=== PATIENT | female | born 1980 | race Caucasian/White ===

== ENCOUNTER 2016-10-28 09:54 | Emergency (ER) | payer MEDICAID ==
--- NOTE | 2016-10-28 11:28 | ER Document Report ---
ED ENT - General Chief Complaint: Sore Throat Stated Complaint: THROAT PAIN Time Seen by Provider: 10/28/16 10:07 TRAVEL OUTSIDE OF THE [place] IN LAST 30 DAYS: No - HPI Patient complains to provider of: Throat problem - hoarse voice with post nasal drip for 4 days, assocaited dry cough Quality of pain: Achy Location of pain: Throat Associated symptoms: Other - sore shoulders without trauma, fall. ROM intact Similar symptoms previously: No Recently seen / treated by doctor: No - Related Data Allergies/Adverse Reactions: No Known Allergies Allergy (Unverified 10/28/16 09:58) Past Medical History - General Information source: Patient - Social History Smoking Status: Current Every Day Smoker Chew tobacco use (# tins/day): No Smoking Education Provided: Yes - for 2 minutes Frequency of alcohol use: Rare Drug Abuse: None Family History: Reviewed & Not Pertinent Patient has suicidal ideation: No Patient has homicidal ideation: No Renal/ Medical History: Denies: Hx Peritoneal Dialysis Surgical Hx: Negative - Immunizations Hx Diphtheria, Pertussis, Tetanus Vaccination: Yes Review of Systems - Review of Systems Constitutional: No symptoms reported EENT: See HPI Cardiovascular: No symptoms reported Respiratory: No symptoms reported -: Yes All other systems reviewed and negative Physical Exam - Vital signs Vitals: Temp Pulse Resp BP Pulse Ox 98.4 F 67 16 130/84 H 95 10/28/16 09:59 10/28/16 09:59 10/28/16 09:59 10/28/16 09:59 10/28/16 09:59 - Notes Notes: PHYSICAL EXAM GENERAL: Alert, interacts well. HEAD: Normocephalic, atraumatic. EYES: Pupils equal, round, and reactive to light. Extraocular movements intact. ENT: Oral mucosa moist, tongue midline. Uvula midline. Airway patent. No evidence of tonsillar enlargement, peritonsillar abscess, retropharyngeal abscess. NECK: Full range of motion. Supple. Trachea midline. LUNGS: Clear to auscultation bilaterally, no wheezes, rales, or rhonchi. No respiratory distress. HEART: Regular rate and rhythm. No murmurs, gallops, or rubs. EXTREMITIES: Moves all 4 extremities spontaneously. No edema, radial and dorsalis pedis pulses 2/4 bilaterally. No cyanosis. NEUROLOGICAL: Alert and oriented x4. Normal speech. PSYCH: Normal affect, normal mood. SKIN: Warm, dry, normal turgor. No rashes or lesions noted. Course - Re-evaluation Re-evalutation: 10/28/16 11:39 Patient is a 36-year-old female who is hemodynamic stable, no acute distress and afebrile. Rapid strep was negative. Patient's presentation is consistent with acute allergic rhinitis. Patient educated on [id number] medications to help with her symptoms. Patient to follow-up with primary care as needed. - Vital Signs Vital signs: Temp Pulse Resp BP Pulse Ox 98.4 F 67 16 130/84 H 95 10/28/16 09:59 10/28/16 09:59 10/28/16 09:59 10/28/16 09:59 10/28/16 09:59 Discharge - Discharge Clinical Impression: Rhinitis Qualifiers: Rhinitis type: allergic Chronicity: acute Allergic rhinitis trigger: unspecified Allergic rhinitis seasonality: seasonal Qualified Code(s): J30.2 - Other seasonal allergic rhinitis Condition: Good Disposition: HOME, SELF-CARE Instructions: Hay Fever ([facility]), OTC Antihistamines ([facility]), Sore Throat ([facility]), Muscle Strain ([facility]), Exercise Program for the Shoulder ([facility]) Additional Instructions: Gxts-[id number] medications to purchase: Claritin/Zyrtec with decongestant, Tylenol or Motrin. Prescriptions: Methylprednisolone [Medrol Dosepack (4 mg/Tab) 21 Tab/Dosepak] 4 mg PO ASDIR PRN #21 tab.ds.pk PRN Reason: Forms: Elevated Blood Pressure, Smoking Cessation Education Referrals: ERICA LEVY MD [ACTIVE STAFF] - Follow up as needed
[2016-10-28 11:55] VITALS: BP 128/69
== END 2016-10-28 11:55 | disposition home or self-care (01) ==
LOC: ER 09:54
DX: J30.2 Other seasonal allergic rhinitis (principal); J02.9 Acute pharyngitis, unspecified; R07.0 Pain in throat; R49.0 Dysphonia; R09.82 Postnasal drip; F17.200 Nicotine dependence, unspecified, uncomplicated; R05 Cough
CPT/HCPCS: 87070; 87880; 99283

== ENCOUNTER 2018-05-06 19:08 | Emergency (ER) | payer MEDICAID ==
--- NOTE | 2018-05-06 20:41 | ER Document Report ---
ED Medical Screen (RME) - General Chief Complaint: Epigastric Pain Stated Complaint: EPIGASTRIC PAIN Time Seen by Provider: 05/06/18 20:39 Mode of Arrival: Ambulatory Information source: Patient Notes: This is a 37-year-old female with no significant prior medical history who presents to the emergency room with epigastric discomfort, right upper quadrant discomfort since the afternoon. Patient states it is better with burping and seems to be worse with food. Patient states that the symptoms started after a eating pizza rolls. Patient denies fever. She denies any vomiting. Past surgical history: , bilateral tubal ligation. Cigarettes: One pack per day TRAVEL OUTSIDE OF THE [place] IN LAST 30 DAYS: No - Related Data Allergies/Adverse Reactions: No Known Allergies Allergy (Verified 05/06/18 19:09) Past Medical History - General Information source: Patient - Social History Cigarette use (# per day): Yes - 1 pack cigarettes per day Chew tobacco use (# tins/day): No Frequency of alcohol use: Rare Drug Abuse: None Renal/ Medical History: Denies: Hx Peritoneal Dialysis Past Surgical History: Reports: Hx Section - x 3 - Immunizations Hx Diphtheria, Pertussis, Tetanus Vaccination: Yes Physical Exam - Vital signs Vitals: Temp Pulse Resp BP Pulse Ox 98.9 F 61 18 138/71 H 97 05/06/18 19:12 05/06/18 19:12 05/06/18 19:12 05/06/18 19:12 05/06/18 19:12 Course - Vital Signs Vital signs: Temp Pulse Resp BP Pulse Ox 98.9 F 61 18 138/71 H 97 05/06/18 19:12 05/06/18 19:12 05/06/18 19:12 05/06/18 19:12 05/06/18 19:12
[2018-05-06 20:46] LABS: APPEARANCE,URINE CLEAR; BILIRUBIN,URINE NEGATIVE (NEGATIVE); COLOR,URINE YELLOW; GLUCOSE, URINE NEGATIVE (NEGATIVE); KETONES,URINE NEGATIVE (NEGATIVE); LEUKOCYTE ESTERASE,URINE NEGATIVE (NEGATIVE); NITRITE,URINE NEGATIVE (NEGATIVE); PROTEIN,URINE NEGATIVE (NEGATIVE); URINE SPECIFIC GRAVITY 1.019; UROBILINOGEN,URINE NEGATIVE mg/dL (<2.0)
[2018-05-06 20:58] LABS: ABSOLUTE BASOPHILS # (AUTO) 0.1 10^3/uL (0.0-0.2); ABSOLUTE LYMPHOCYTES (AUTO) 1.8 10^3/uL (0.5-4.7); ABSOLUTE MONOCYTES (AUTO) 0.5 10^3/uL (0.1-1.4); ABSOLUTE NEUT (AUTO) 10.7 10^3/uL (1.7-8.2); BASOPHILS % (AUTO) 0.7 % (0-2); EOSINOPHILS % (AUTO) 0.2 % (0-6); HEMATOCRIT 36.8 % (36.0-47.0); HEMOGLOBIN 11.8 g/dL (12.0-15.5); LYMPHOCYTES % (AUTO) 13.8 % (13-45); MEAN CORPUSCULAR HEMOGLOBIN 24.6 pg (27.0-33.4); MEAN CORPUSCULAR VOLUME 77 fl (80-97); MONOCYTES % (AUTO) 3.8 % (3-13); PLATELET COUNT 343 10^3/uL (150-450); RED BLOOD COUNT 4.79 10^6/uL (3.72-5.28); RED CELL DISTRIBUTION WIDTH 19.6 % (11.5-14.0); SEGMENTED NEUTROPHILS % (AUTO) 81.5 % (42-78); TOTAL CELLS COUNTED % (AUTO) 100 %; WHITE BLOOD COUNT 13.2 10^3/uL (4.0-10.5)
[2018-05-06 21:10] LABS: ALANINE AMINOTRANSFERASE 31 U/L (9-52); ALBUMIN 4.6 g/dL (3.5-5.0); ALKALINE PHOSPHATASE 75 U/L (38-126); ANION GAP 9 (5-19); ASPARTATE AMINO TRANSFERASE 19 U/L (14-36); BILIRUBIN,DIRECT 0.2 mg/dL (0.0-0.4); BILIRUBIN,TOTAL 0.3 mg/dL (0.2-1.3); BLOOD UREA NITROGEN 7 mg/dL (7-20); CALCIUM 9.8 mg/dL (8.4-10.2); CARBON DIOXIDE 24 mmol/L (22-30); CHLORIDE 103 mmol/L (98-107); GLUCOSE 125 mg/dL (75-110); POTASSIUM 4.4 mmol/L (3.6-5.0); SODIUM 136.1 mmol/L (137-145); TOTAL PROTEIN 7.4 g/dL (6.3-8.2)
--- NOTE | 2018-05-06 23:23 | RADIOLOGY REPORT (SQ) ---
EXAM DESCRIPTION: US ABDOMEN LIMITED COMPLETED DATE/TME: 05/06/2018 20:39 CLINICAL HISTORY: 37 years, Female, upper abdominal pain r/o gb disease COMPARISON: None. TECHNIQUE: Limited right upper quadrant ultrasound LIMITATIONS: None. FINDINGS: Diffuse increased echogenicity of the liver consistent with fatty infiltrative change. No focal liver lesions. Mobile, shadowing stones in the gallbladder lumen. No gallbladder wall thickening or pericholecystic fluid. The CBD measures 4 mm. The visualized portions of the pancreas, abdominal aorta, inferior vena cava, right kidney unremarkable. No ascites IMPRESSION: Fatty infiltrative change to the liver. Cholelithiasis. No sonographic evidence for cholecystitis copyright 2010 [employer] [facility]- All Rights Reserved
[2018-05-06] MEDS ORDERED: KETOROLAC TROMETHAMINE INJ/PF 30 MG/1 ML SDV IV ONE (23:29)
[2018-05-06] MEDS ORDERED: NORMAL SALINE 1000 ML 1,000 ML IV ONE (23:29)
[2018-05-06] MEDS ORDERED: ONDANSETRON HCL INJ/PF 4 MG/2 ML SDV IV ONE (23:29)
--- NOTE | 2018-05-07 02:13 | ER Document Report ---
ED General - General Chief Complaint: Epigastric Pain Stated Complaint: EPIGASTRIC PAIN Time Seen by Provider: 05/06/18 20:39 Mode of Arrival: Ambulatory Notes: Patient is a 37-year-old female presents to the emergency department with generalized right upper quadrant and epigastric pain starting around 1500 hrs. yesterday. Patient states at that time she was nauseous but denies any vomiting, diarrhea, fever, dysuria, vaginal discharge. Patient states she has had pain in her epigastric region before. States typically it goes away on its own but states today it was constant which is why she presents to the emergency room. Past medical history: None Medications: None Allergies: None Surgical history: section with tubal ligation Last menstrual period January, patient states her menses are always irregular TRAVEL OUTSIDE OF THE [place] IN LAST 30 DAYS: No - Related Data Allergies/Adverse Reactions: No Known Allergies Allergy (Verified 05/06/18 19:09) Past Medical History - General Information source: Patient - We will - Social History Smoking Status: Current Every Day Smoker Cigarette use (# per day): Yes - 1 pack cigarettes per day Chew tobacco use (# tins/day): No Frequency of alcohol use: Rare Drug Abuse: None Family History: Reviewed & Not Pertinent Patient has suicidal ideation: No Patient has homicidal ideation: No Renal/ Medical History: Denies: Hx Peritoneal Dialysis Past Surgical History: Reports: Hx Section - x 3 - Immunizations Hx Diphtheria, Pertussis, Tetanus Vaccination: Yes Review of Systems - Review of Systems Constitutional: No symptoms reported. denies: Fever EENT: No symptoms reported - EKG still shows that she has been transferred I am going to leave the morning Cardiovascular: No symptoms reported Respiratory: No symptoms reported Gastrointestinal: See HPI Genitourinary: See HPI Female Genitourinary: See HPI Musculoskeletal: See HPI Skin: No symptoms reported Hematologic/Lymphatic: No symptoms reported Neurological/Psychological: No symptoms reported Physical Exam - Vital signs Vitals: Temp Pulse Resp BP Pulse Ox 98.9 F 61 18 138/71 H 97 05/06/18 19:12 05/06/18 19:12 05/06/18 19:12 05/06/18 19:12 05/06/18 19:12 - Notes Notes: GENERAL: Obese with alert, interacts well. No acute distress. HEAD: Normocephalic, atraumatic. EYES: Pupils equal, round, and reactive to light. Extraocular movements intact. ENT: Oral mucosa moist, tongue midline. NECK: Full range of motion. Supple. Trachea midline. LUNGS: Clear to auscultation bilaterally, no wheezes, rales, or rhonchi. No respiratory distress. HEART: Regular rate and rhythm. No murmur ABDOMEN: Obese, soft, non-tender. Non-distended. Bowel sounds present in all 4 quadrants. No McBurney's point tenderness, no Elkins sign noted on my examination. EXTREMITIES: Moves all 4 extremities spontaneously. No edema, normal radial and dorsalis pedis pulses bilaterally. No cyanosis. BACK: no cervical, thoracic, lumbar midline tenderness. No saddle anesthesia, normal distal neurovascular exam. NEUROLOGICAL: Alert and oriented x3. Normal speech. PSYCH: Normal affect, normal mood. SKIN: Warm, dry, normal turgor. No rashes or lesions noted. Course - Re-evaluation Re-evalutation: 05/07/18 02:10 Patient's labs show leukocytosis of 13.1, her sodium level was 136.1 treated with normal saline solution in the emergency department. Patient's urine shows no signs of infection, negative hCG. Patient was treated with Toradol and Zofran for her generalized epigastric right upper quadrant pain noted by the E provider. Patient's ultrasound shows cholelithiasis with no signs of cholecystitis. Upon my examination patient states she is pain-free and requesting discharge. Discussed return precautions and follow-up with primary care provider and surgery. Patient voices understanding. Patient stable for discharge. - Vital Signs Vital signs: Temp Pulse Resp BP Pulse Ox 98.9 F 61 18 138/71 H 97 05/06/18 19:12 05/06/18 19:12 05/06/18 19:12 05/06/18 19:12 05/06/18 19:12 - Laboratory Result Diagrams: 05/06/18 20:45 05/06/18 20:45 Laboratory results interpreted by me: 05/06/18 05/06/18 20:45 20:45 WBC 13.2 H Hgb 11.8 L MCV 77 L MCH 24.6 L RDW 19.6 H Seg Neutrophils % 81.5 H Absolute Neutrophils 10.7 H Sodium 136.1 L Glucose 125 H Discharge - Discharge Clinical Impression: Cholelithiasis Qualifiers: Cholelithiasis location: gallbladder Cholecystitis presence: without cholecystitis Biliary obstruction: without biliary obstruction Qualified Code(s): K80.20 - Calculus of gallbladder without cholecystitis without obstruction Condition: Stable Disposition: HOME, SELF-CARE Instructions: Gallbladder Disease ([facility]) Additional Instructions: As we discussed you have been seen and treated in the emergency department for something called cholelithiasis. This means there are stones in your gallbladder. You should follow-up with your primary care provider and inevitably surgery. A surgeon can electively potentially take out your gallbladder. Please return to the emergency room should you have any other concerning symptoms. Prescriptions: Ketorolac Tromethamine [Toradol 10 mg Tablet] 10 mg PO Q8HP PRN #24 tablet PRN Reason: Ondansetron [Zofran Odt 4 mg Tablet] 1 - 2 tab PO Q4H PRN #15 tab.rapdis PRN Reason: For Nausea/Vomiting Referrals: ANTOINE FOUNTAIN MD [[facility]] - Follow up as needed
[2018-05-07 02:59] VITALS: BP 109/56
== END 2018-05-07 03:00 | disposition home or self-care (01) ==
LOC: ER 19:08
DX: K80.20 Calculus of gallbladder without cholecystitis without obstruction (principal); R10.13 Epigastric pain; R10.11 Right upper quadrant pain; R11.0 Nausea; F17.210 Nicotine dependence, cigarettes, uncomplicated
CPT/HCPCS: 99284; 96374; 96375; 36415; 83690; 85025; 81025; 80053; 81001; 76705; J1885; J2405; J7030

== ENCOUNTER 2018-05-16 03:16 | Day surgery (SDC) | payer MEDICAID ==
[2018-05-16] MEDS ORDERED: MORPHINE SULFATE 10 MG/ML INJ IV ONE ×2 (03:48→05:35)
[2018-05-16] MEDS ORDERED: KETOROLAC TROMETHAMINE INJ/PF 30 MG/1 ML SDV IV ONE ×2 (03:48→05:35)
[2018-05-16] MEDS ORDERED: ONDANSETRON HCL INJ/PF 4 MG/2 ML SDV IV ONE (03:49)
[2018-05-16] MEDS ORDERED: NORMAL SALINE 1000 ML 1,000 ML IV ONE (03:49)
--- NOTE | 2018-05-16 04:03 | ER Document Report ---
Addendum entered and electronically signed by MARLENY PEREZ PA 05/16/18 07:24: Discharge - Discharge Clinical Impression: RUQ abdominal pain Vomiting Qualifiers: Vomiting type: unspecified Vomiting Intractability: non-intractable Nausea presence: with nausea Qualified Code(s): R11.2 - Nausea with vomiting, unspecified Cholelithiasis Qualifiers: Cholelithiasis location: gallbladder Cholecystitis presence: without cholecystitis Biliary obstruction: without biliary obstruction Qualified Code(s): K80.20 - Calculus of gallbladder without cholecystitis without obstruction Condition: Stable Disposition: ADMITTED OBSERVATION Admitting Provider: Surgicalist Unit Admitted: Surgical Floor Referrals: GLADYS STRICKLAND MD [Primary Care Provider] - Follow up as needed Original Note: ED GI/ - General Chief Complaint: Abdominal Pain Stated Complaint: FLANK PAIN, NAUSEA Time Seen by Provider: 05/16/18 03:43 Primary Care Provider: GLADYS STRICKLAND MD [Primary Care Provider] - Follow up as needed Notes: Patient is a 37-year-old female that comes to the emergency department for chief complaint of sharp right upper quadrant pain since 9:30 PM and an episode of vomiting. She has known history of gallstones. She did eat a slice of cheese pizza for dinner at 7 PM. She states this is her third episode of gallbladder "attack" this week. She denies fever chills, nausea or vomiting. Pain does radiate around to the right flank but not the left. Past medical history of C- sections, tubal ligation, denies any daily medications, denies medical history otherwise. TRAVEL OUTSIDE OF THE [place] IN LAST 30 DAYS: No - Related Data Allergies/Adverse Reactions: No Known Allergies Allergy (Verified 05/06/18 19:09) Past Medical History - General Information source: Patient - Social History Smoking Status: Never Smoker Frequency of alcohol use: None Drug Abuse: None Lives with: Family Family History: Reviewed & Not Pertinent - Medical History Medical History: Negative Renal/ Medical History: Denies: Hx Peritoneal Dialysis Past Surgical History: Reports: Hx Section - x 3 - Immunizations Hx Diphtheria, Pertussis, Tetanus Vaccination: Yes Review of Systems - Review of Systems Constitutional: No symptoms reported EENT: No symptoms reported Cardiovascular: No symptoms reported Respiratory: No symptoms reported Gastrointestinal: See HPI Genitourinary: No symptoms reported Female Genitourinary: No symptoms reported Musculoskeletal: No symptoms reported Skin: No symptoms reported Hematologic/Lymphatic: No symptoms reported Neurological/Psychological: No symptoms reported Physical Exam - Vital signs Vitals: Temp Pulse Resp BP Pulse Ox 97.9 F 72 20 137/85 H 97 05/16/18 03:24 05/16/18 03:24 05/16/18 03:24 05/16/18 03:24 05/16/18 03:24 - Notes Notes: GENERAL: Appears to be in pain, holding upper abdomen, moderate distress HEAD: Normocephalic, atraumatic. EYES: Pupils equal, round, and reactive to light. Extraocular movements intact. ENT: Oral mucosa moist, tongue midline. Oropharynx unremarkable. Airway patent. Nares patent, no nasal septal hematoma, TM's intact. NECK: Full range of motion. Supple. Trachea midline. LUNGS: Clear to auscultation bilaterally, no wheezes, rales, or rhonchi. No respiratory distress. HEART: Regular rate and rhythm. No murmur ABDOMEN: Positive Elkins sign with notable tenderness in the right upper quadrant and mild tenderness in the epigastric area. Remaining abdomen soft and unremarkable. GENITOURINARY: Deferred EXTREMITIES: Moves all 4 extremities spontaneously. No edema, normal radial and dorsalis pedis pulses bilaterally. No cyanosis. BACK: no cervical, thoracic, lumbar midline tenderness. No saddle anesthesia, normal distal neurovascular exam. NEUROLOGICAL: Alert and oriented x3. Normal speech. [cranial nerves II through XII grossly intact]. PSYCH: Normal affect, normal mood. SKIN: Warm, dry, normal turgor. No rashes or lesions noted. Course - Re-evaluation Re-evalutation: Patient in obvious pain on initial evaluation with right upper quadrant tenderness. Suspect this is gallbladder pain because of the location and history. Initially patient stating that she was hoping that she could receive something for the pain, and then follow-up with her surgical clinic appointment. CBC unremarkable, chemistry unremarkable, lipase unremarkable, hCG is negative. Urinalysis unremarkable. Patient reevaluated. Unfortunately even though she is improved she is having pain again. As result she states that she is hoping for additional evaluation and workup. Ultrasound will be performed. Remedicated. Kept n.p.o. Ultrasound showing cholelithiasis, fatty liver, bile duct is slightly increased in size, however patient has no elevated bilirubin, elevated LFTs, or elevated lipase. I had a long conversation with patient. She is still having some pain, she is hoping to be evaluated by surgery because of recurrent pain and persistent sym ptoms at home. 05/16/18 07:10 Spoke with general surgeon on-call Dr. Navarro. He states he will come evaluate the patient. - Vital Signs Vital signs: Temp Pulse Resp BP Pulse Ox 97.9 F 72 20 109/61 96 05/16/18 03:24 05/16/18 03:24 05/16/18 03:24 05/16/18 05:57 05/16/18 06:00 - Laboratory Result Diagrams: 05/16/18 04:25 05/16/18 04:25 Laboratory results interpreted by me: 05/16/18 05/16/18 05/16/18 04:25 04:25 04:25 MCV 78 L MCH 25.4 L RDW 19.8 H Glucose 120 H Calcium 10.4 H Urine Urobilinogen 2.0 H Ur Leukocyte Esterase TRACE H Discharge - Discharge Clinical Impression: RUQ abdominal pain Vomiting Qualifiers: Vomiting type: unspecified Vomiting Intractability: non-intractable Nausea presence: with nausea Qualified Code(s): R11.2 - Nausea with vomiting, unspecified Cholelithiasis Qualifiers: Cholelithiasis location: gallbladder Cholecystitis presence: without cholecystitis Biliary obstruction: without biliary obstruction Qualified Code(s): K80.20 - Calculus of gallbladder without cholecystitis without obstruction Condition: Stable Referrals: GLADYS STRICKLAND MD [Primary Care Provider] - Follow up as needed
[2018-05-16 04:46] LABS: ABSOLUTE BASOPHILS # (AUTO) 0.1 10^3/uL (0.0-0.2); ABSOLUTE EOSINOPHILS # (AUTO) 0.2 10^3/uL (0.0-0.6); ABSOLUTE LYMPHOCYTES (AUTO) 2.5 10^3/uL (0.5-4.7); ABSOLUTE MONOCYTES (AUTO) 0.6 10^3/uL (0.1-1.4); ABSOLUTE NEUT (AUTO) 6.5 10^3/uL (1.7-8.2); BASOPHILS % (AUTO) 0.8 % (0-2); EOSINOPHILS % (AUTO) 1.6 % (0-6); HEMATOCRIT 38.5 % (36.0-47.0); HEMOGLOBIN 12.5 g/dL (12.0-15.5); LYMPHOCYTES % (AUTO) 25.2 % (13-45); MEAN CORPUSCULAR HEMOGLOBIN 25.4 pg (27.0-33.4); MEAN CORPUSCULAR HGB CONC 32.5 g/dL (32.0-36.0); MEAN CORPUSCULAR VOLUME 78 fl (80-97); MONOCYTES % (AUTO) 6.4 % (3-13); PLATELET COUNT 348 10^3/uL (150-450); RED BLOOD COUNT 4.92 10^6/uL (3.72-5.28); RED CELL DISTRIBUTION WIDTH 19.8 % (11.5-14.0); TOTAL CELLS COUNTED % (AUTO) 100 %; WHITE BLOOD COUNT 9.8 10^3/uL (4.0-10.5)
[2018-05-16 05:08] LABS: ALANINE AMINOTRANSFERASE 24 U/L (9-52); ALBUMIN 4.6 g/dL (3.5-5.0); ALKALINE PHOSPHATASE 69 U/L (38-126); ANION GAP 11 (5-19); ASPARTATE AMINO TRANSFERASE 20 U/L (14-36); BILIRUBIN,DIRECT 0.3 mg/dL (0.0-0.4); BILIRUBIN,TOTAL 0.4 mg/dL (0.2-1.3); BLOOD UREA NITROGEN 13 mg/dL (7-20); CALCIUM 10.4 mg/dL (8.4-10.2); CARBON DIOXIDE 24 mmol/L (22-30); CHLORIDE 106 mmol/L (98-107); GLUCOSE 120 mg/dL (75-110); LIPASE 138.1 U/L (23-300); POTASSIUM 4.7 mmol/L (3.6-5.0); SODIUM 141.3 mmol/L (137-145); TOTAL PROTEIN 7.6 g/dL (6.3-8.2)
[2018-05-16 06:03] LABS: APPEARANCE,URINE TURBID; BILIRUBIN,URINE NEGATIVE (NEGATIVE); COLOR,URINE YELLOW; GLUCOSE, URINE NEGATIVE (NEGATIVE); KETONES,URINE NEGATIVE (NEGATIVE); LEUKOCYTE ESTERASE,URINE TRACE (NEGATIVE); NITRITE,URINE NEGATIVE (NEGATIVE); PROTEIN,URINE NEGATIVE (NEGATIVE); URINE SPECIFIC GRAVITY 1.029
--- NOTE | 2018-05-16 07:03 | RADIOLOGY REPORT (SQ) ---
EXAM DESCRIPTION: US ABDOMEN LIMITED COMPLETED DATE/TME: 05/16/2018 05:35 CLINICAL HISTORY: 37 years Female, RUQ pain Comparison: 05/06/18 LIMITATIONS: Premedicated. FINDINGS: Cholelithiasis, gallbladder sludge, negative sonographic Elkins's test, 19 cm prominent liver, mild hepatic steatosis, a 0.8-cm diameter common bile duct, no intrahepatic ductal dilation, 10-cm right kidney, partially obscured pancreas, visualized vasculature/abdominal aorta, and no significant ascites appear otherwise unremarkable. IMPRESSION: 1. No acute findings. Cholelithiasis and gallbladder sludge. 2. There is 0.8 cm diameter prominence of the common bile duct increased compared with prior exam from May 06, 2018 at which time it measured 0.4 cm. No intrahepatic ductal dilation. 3. Hepatic steatosis.
[2018-05-16] MEDS ORDERED: NORMAL SALINE 1000 ML 1,000 ML IV PRN ×2 (07:18→07:39)
--- NOTE | 2018-05-16 07:34 | PDOC H&P ---
History of Present Illness Admission Date/PCP: 37 y/o female with intermittent ruq pain, on and off last few weeks, multiple vists to er over last 2 wks. has appoint with surgeon next wk for cholelithiasis now here again today with ruq pain, nausea, vomiting ultz again shows cholelithiasis and no stranding. History of Present Illness: LANEY DEGROOT is a 37 year old female with intermittent ruq pain, on and off l ast few weeks, multiple vists to er over last 2 wks. has appoint with surgeon next wk for cholelithiasis now here again today with ruq pain, nausea, vomiting ultz again shows cholelithiasis and no stranding. Past Medical History Cardiac Medical History: Reports: None Pulmonary Medical History: Reports: None EENT Medical History: Reports: None Neurological Medical History: Reports: None Endocrine Medical History: Reports: None Renal/ Medical History: Reports: None Malignancy Medical History: Reports: None GI Medical History: Reports: None Musculoskeltal Medical History: Reports: None Skin Medical History: Reports: None Psychiatric Medical History: Reports: None Traumatic Medical History: Reports: None Hematology: Reports: None Infectious Medical History: Reports: None Past Surgical History Past Surgical History: Reports: Section - x 3 Social History Lives with: Family Smoking Status: Never Smoker Family History Family History: Reviewed & Not Pertinent Parental Family History Reviewed: No Children Family History Reviewed: NA Sibling(s) Family History Reviewed.: NA Medication/Allergy Home Medications: Ketorolac Tromethamine [Toradol 10 mg Tablet] 10 mg PO Q8HP PRN #24 tablet 05/07/18 Ondansetron [Zofran Odt 4 mg Tablet] 1 - 2 tab PO Q4H PRN #15 tab.rapdis 05/07/18 Allergies/Adverse Reactions: No Known Allergies Allergy (Verified 05/06/18 19:09) Review of Systems Constitutional: PRESENT: as per HPI Eyes: PRESENT: as per HPI Ears: PRESENT: as per HPI Nose, Mouth, and Throat: PRESENT: as per HPI Breasts: PRESENT: as per HPI Cardiovascular: PRESENT: as per HPI Respiratory: PRESENT: as per HPI Gastrointestinal: PRESENT: abdominal pain, nausea, vomiting Genitourinary: PRESENT: as per HPI Musculoskeletal: PRESENT: as per HPI Integumentary: PRESENT: as per HPI Neurological: PRESENT: as per HPI Endocrine: PRESENT: as per HPI Hematologic/Lymphatic: PRESENT: as per HPI Allergic/Immunologic: PRESENT: as per HPI Physical Exam Vital Signs: Temp Pulse Resp BP Pulse Ox 97.9 F 72 20 109/61 96 05/16/18 03:24 05/16/18 03:24 05/16/18 03:24 05/16/18 05:57 05/16/18 06:00 Intake & Output 05/15/18 05/16/18 05/17/18 06:59 06:59 06:59 Weight 115.9 kg General appearance: PRESENT: no acute distress Head exam: PRESENT: atraumatic Eye exam: PRESENT: EOMI Mouth exam: PRESENT: dry mucosa Neck exam: PRESENT: full ROM Respiratory exam: PRESENT: clear to auscultation rl Cardiovascular exam: PRESENT: RRR Pulses: PRESENT: normal carotid pulses, normal radial pulses Vascular exam: PRESENT: normal capillary refill GI/Abdominal exam: PRESENT: tenderness - tender in epigastrium and ruq Rectal exam: PRESENT: deferred Extremities exam: PRESENT: full ROM Musculoskeletal exam: PRESENT: ambulatory, full ROM Neurological exam: PRESENT: alert, awake, oriented to person, oriented to place, oriented to time, oriented to situation Skin exam: PRESENT: dry Results Laboratory Results: 05/16/18 04:25 05/16/18 04:25 05/16/18 05/16/18 05/16/18 04:25 04:25 04:25 WBC 9.8 RBC 4.92 Hgb 12.5 Hct 38.5 MCV 78 L MCH 25.4 L MCHC 32.5 RDW 19.8 H Plt Count 348 Seg Neutrophils % 66.0 Lymphocytes % 25.2 Monocytes % 6.4 Eosinophils % 1.6 Basophils % 0.8 Absolute Neutrophils 6.5 Absolute Lymphocytes 2.5 Absolute Monocytes 0.6 Absolute Eosinophils 0.2 Absolute Basophils 0.1 Sodium 141.3 Potassium 4.7 Chloride 106 Carbon Dioxide 24 Anion Gap 11 BUN 13 Creatinine 0.85 Est GFR ( Amer) > 60 Est GFR (Non-Af Amer) > 60 Glucose 120 H Calcium 10.4 H Total Bilirubin 0.4 AST 20 ALT 24 Alkaline Phosphatase 69 Total Protein 7.6 Albumin 4.6 Lipase 138.1 Serum HCG, Qual NEGATIVE Urine Color Urine Appearance Urine pH Ur Specific [place] Urine Protein Urine Glucose (UA) Urine Ketones Urine Blood Urine Nitrite Ur Leukocyte Esterase 02/01/19 04:25 WBC RBC Hgb Hct MCV MCH MCHC RDW Plt Count Seg Neutrophils % Lymphocytes % Monocytes % Eosinophils % Basophils % Absolute Neutrophils Absolute Lymphocytes Absolute Monocytes Absolute Eosinophils Absolute Basophils Sodium Potassium Chloride Carbon Dioxide Anion Gap BUN Creatinine Est GFR ( Amer) Est GFR (Non-Af Amer) Glucose Calcium Total Bilirubin AST ALT Alkaline Phosphatase Total Protein Albumin Lipase Serum HCG, Qual Urine Color YELLOW Urine Appearance TURBID Urine pH 5.0 Ur Specific [place] 1.029 Urine Protein NEGATIVE Urine Glucose (UA) NEGATIVE Urine Ketones NEGATIVE Urine Blood NEGATIVE Urine Nitrite NEGATIVE Ur Leukocyte Esterase TRACE H Impressions: Abdomen Ultrasound 05/16/18 05:35 IMPRESSION: 1. No acute findings. Cholelithiasis and gallbladder sludge. 2. There is 0.8 cm diameter prominence of the common bile duct increased compared with prior exam from May 06, 2018 at which time it measured 0.4 cm. No intrahepatic ductal dilation. 3. Hepatic steatosis. Assessment & Plan - Diagnosis (1) Cholelithiasis Qualifiers: Cholelithiasis location: gallbladder Cholecystitis presence: without cholecystitis Biliary obstruction: without biliary obstruction Qualified Code(s): K80.20 - Calculus of gallbladder without cholecystitis without obstruction - Time Time Spent: 50 to 70 Minutes - Inpatient Certification Medical Necessity: Need for Surgery - Plan Summary Plan Summary: laparoscopic cholecystectomy risks of surgery including bleeding,infection,pe,mi,injury to adjacent organs including bile ducts, small and large bowel, need for open sugery, need for additional surgery, hernia have been discussed. she agrees to proceed.
[2018-05-16] MEDS ORDERED: BUPIVACAINE HCL 0.5%-EPI 1:200000 INJ/PF 30 ML VIAL ONE (07:50)
[2018-05-16] MEDS ORDERED: METRONIDAZOLE 500 MG/NS RTU 500 MG/100 ML RTUPB IV ONE (09:02)
[2018-05-16] MEDS ORDERED: CEFAZOLIN INJ 1 GM VIAL ONE (09:02)
[2018-05-16] MEDS ORDERED: FENTANYL CITRATE INJ/PF 250 MCG/5 ML AMPULE ONE (09:15)
[2018-05-16] MEDS ORDERED: LIDOCAINE 2% INJ-PF (20 MG/ML) 10 ML AMPUL ONE (09:15)
[2018-05-16] MEDS ORDERED: ONDANSETRON HCL INJ/PF 4 MG/2 ML SDV ONE (09:16)
[2018-05-16] MEDS ORDERED: PROPOFOL INJ 200 MG/20 ML VIAL IV ONE (09:16)
[2018-05-16] MEDS ORDERED: MIDAZOLAM 2 MG/2 ML INJ ONE (09:16)
[2018-05-16] MEDS ORDERED: DEXMEDETOMIDINE INJ 80 MCG/20 ML VIAL IV ONE (09:16)
[2018-05-16] MEDS ORDERED: ACETAMINOPHEN 1,000 MG/100 ML RTUPB IV ONE (09:16)
[2018-05-16] MEDS ORDERED: KETOROLAC TROMETHAMINE 60 MG/2 ML SDV ONE (09:56)
[2018-05-16] MEDS ORDERED: METOCLOPRAMIDE HCL INJ/PF 10 MG/2 ML SDV ONE ×2 (09:56→11:25)
[2018-05-16] MEDS ORDERED: PHENYLEPHRINE HCL INJ/PF 10 MG/1 ML SDV ONE (09:56)
[2018-05-16] MEDS ORDERED: NEOSTIGMINE METHYLSULFATE 10 MG/10 ML VIAL ONE (09:56)
[2018-05-16] MEDS ORDERED: SUCCINYLCHOLINE CHLORIDE INJ 200 MG/10 ML VIAL ONE (09:56)
[2018-05-16] MEDS ORDERED: DEXAMETHASONE SOD PHOSPHATE INJ 4 MG/1 ML VIAL ONE (09:56)
[2018-05-16] MEDS ORDERED: GLYCOPYRROLATE 1 MG/5 ML SYRINGE ONE (09:56)
[2018-05-16] MEDS ORDERED: ROCURONIUM BROMIDE INJ 50 MG/5 ML VIAL IV ONE (09:56)
[2018-05-16] MEDS ORDERED: METRONIDAZOLE 500 MG/NS RTU 500 MG/100 ML RTUPB IV SCH (10:00)
[2018-05-16] MEDS ORDERED: PROMETHAZINE HCL INJ 25 MG/1 ML VIAL IV PRN ×2 (10:10)
[2018-05-16] MEDS ORDERED: MEPERIDINE HCL/PF INJ 25 MG/1 ML DISP.SYRIN IV PRN (10:10)
[2018-05-16] MEDS ORDERED: DIPHENHYDRAMINE HCL 50 MG/ML VIAL IV PRN (10:10)
[2018-05-16] MEDS ORDERED: ONDANSETRON HCL INJ/PF 4 MG/2 ML SDV IV PRN (10:10)
[2018-05-16] MEDS ORDERED: FENTANYL CITRATE INJ/PF 100 MCG/2 ML AMPUL IV PRN ×3 (10:10)
[2018-05-16] MEDS ORDERED: SUGAMMADEX SODIUM 200 MG/2 ML SDV IV ONE (10:26)
--- NOTE | 2018-05-16 10:55 | PDOC DISCHARGE SUMMARY ---
General - Admit/Disc Date/PCP Admission Date/Primary Care Provider: 05/16/18 07:48 GLADYS STRICKLAND MD Discharge Date: 05/16/18 - Additional Information Resuscitation Status: Full Code Home Medications: No Home Medications 05/16/18 History of Present Illness Patient complains of: ruq pain on and off for 2 wks History of Present Illness: ruq pain on and off for 2 wks + ultz for gallstones Hospital Course Hospital Course: pt admitted for symptomatic cholelithiasis taken to or for uncomplicated lap cholecystectomy joel well [place] to [place] home from recovery room Physical Exam Vital Signs: Temp Pulse Resp BP Pulse Ox 97.9 F 77 16 112/54 L 97 05/16/18 07:32 05/16/18 07:32 05/16/18 07:32 05/16/18 07:32 05/16/18 07:32 Intake & Output 05/15/18 05/16/18 05/17/18 06:59 06:59 06:59 Intake Total 0 Output Total 0 Balance 0 Weight 115.9 kg General appearance: PRESENT: no acute distress Respiratory exam: PRESENT: clear to auscultation rl Cardiovascular exam: PRESENT: RRR GI/Abdominal exam: PRESENT: soft Rectal exam: PRESENT: deferred Extremities exam: PRESENT: full ROM Musculoskeletal exam: PRESENT: ambulatory Results Laboratory Results: 05/16/18 04:25 05/16/18 04:25 05/16/18 05/16/18 05/16/18 04:25 04:25 04:25 WBC 9.8 RBC 4.92 Hgb 12.5 Hct 38.5 MCV 78 L MCH 25.4 L MCHC 32.5 RDW 19.8 H Plt Count 348 Seg Neutrophils % 66.0 Lymphocytes % 25.2 Monocytes % 6.4 Eosinophils % 1.6 Basophils % 0.8 Absolute Neutrophils 6.5 Absolute Lymphocytes 2.5 Absolute Monocytes 0.6 Absolute Eosinophils 0.2 Absolute Basophils 0.1 Sodium 141.3 Potassium 4.7 Chloride 106 Carbon Dioxide 24 Anion Gap 11 BUN 13 Creatinine 0.85 Est GFR ( Amer) > 60 Est GFR (Non-Af Amer) > 60 Glucose 120 H Calcium 10.4 H Total Bilirubin 0.4 AST 20 ALT 24 Alkaline Phosphatase 69 Total Protein 7.6 Albumin 4.6 Lipase 138.1 Serum HCG, Qual NEGATIVE Urine Color Urine Appearance Urine pH Ur Specific [place] Urine Protein Urine Glucose (UA) Urine Ketones Urine Blood Urine Nitrite Ur Leukocyte Esterase 05/16/18 04:25 WBC RBC Hgb Hct MCV MCH MCHC RDW Plt Count Seg Neutrophils % Lymphocytes % Monocytes % Eosinophils % Basophils % Absolute Neutrophils Absolute Lymphocytes Absolute Monocytes Absolute Eosinophils Absolute Basophils Sodium Potassium Chloride Carbon Dioxide Anion Gap BUN Creatinine Est GFR ( Amer) Est GFR (Non-Af Amer) Glucose Calcium Total Bilirubin AST ALT Alkaline Phosphatase Total Protein Albumin Lipase Serum HCG, Qual Urine Color YELLOW Urine Appearance TURBID Urine pH 5.0 Ur Specific [place] 1.029 Urine Protein NEGATIVE Urine Glucose (UA) NEGATIVE Urine Ketones NEGATIVE Urine Blood NEGATIVE Urine Nitrite NEGATIVE Ur Leukocyte Esterase TRACE H Impressions: Abdomen Ultrasound 05/16/18 05:35 IMPRESSION: 1. No acute findings. Cholelithiasis and gallbladder sludge. 2. There is 0.8 cm diameter prominence of the common bile duct increased compared with prior exam from May 06, 2018 at which time it measured 0.4 cm. No intrahepatic ductal dilation. 3. Hepatic steatosis. Qualifiers - * PATIENT BEING DISCHARGED WITH ANY OF THE FOLLOWING DIAGNOSIS: No VTE patient discharged on overlapping Therapy?: No Stroke Pt being discharged on Anti-thrombolytic therapy?: No Reason(s) for not prescribing Anti-thrombolytic therapy:: Not indicated Reason(s) for not prescribing Anti-coagulation therapy:: Not indicated Reason(s) for not prescribing Statins therapy:: Not indicated Reason(s) for not prescribing Aspirin therapy:: Not indicated Reason(s) for not prescribing Statin therapy:: Not indicated Reason(s) for not prescribing ACEI/ARBS:: Not indicated Reason(s) for not prescribing ACEI:: Not indicated Reason(s) for not prescribing ARBS:: Not indicated Reason(s) for not prescribing Warfarin:: Not indicated Reason(s) for not prescribing evidence-based Beta Tisha:: Not indicated Plan Discharge Plan: ok to dc home f/u in 7-10 days for post op check
--- NOTE | 2018-05-16 11:04 | Operative Report ---
Operative Report DATE OF SURGERY: 05/16/18 PREOPERATIVE DIAGNOSIS: choleliltlhiasis POSTOPERATIVE DIAGNOSIS: cholecystitis OPERATION: lap chlecystectomy SURGEON: JOSHUA PETTIT ANESTHESIA: GA TISSUE REMOVED OR ALTERED: gallbladder COMPLICATIONS: none ESTIMATED BLOOD LOSS: 25cc INTRAOPERATIVE FINDINGS: acute cholecystitis PROCEDURE: see dictated note
--- NOTE | 2018-05-16 11:30 | Discharge Summary ---
Discharge Summary (SDC) - Discharge Final Diagnosis: cholecystitis Date of Surgery: 05/16/18 Condition: Good Referrals: GLADYS STRICKLAND MD [Primary Care Provider] - Follow up as needed Discharge Diet: As Tolerated Respiratory Treatments at Home: Deep Breathing/Coughing Discharge Activity: Activity As Tolerated Report the Following to Your Physician Immediately: Shortness of Breath, Nausea, Vomiting, Increase in Pain, Redness - needs a f/u iwth me or the pa in 7-10 days
--- NOTE | 2018-05-16 11:32 | OPERATIVE REPORT E ---
Operative Report NAME: LANEY DEGROOT : 1980 AGE: 37Y DATE OF SURGERY: 05/16/2018 ROOM: ED19 PREOPERATIVE DIAGNOSIS: Symptomatic cholelithiasis. POSTOPERATIVE DIAGNOSIS: Cholecystitis. OPERATIVE PROCEDURE: Laparoscopic cholecystectomy. SURGEON: JOSHUA PETTIT M.D. ANESTHESIA: General. PROCEDURE: The patient was brought to the operating room awake and alert in stable condition, placed on the operating table in supine position, induced under general anesthesia, and intubated. The abdomen was prepped and draped in the usual sterile manner for the procedure. A Veress needle was placed into the umbilicus and the abdomen was insufflated with 6 L of CO2 gas. An infraumbilical 10 mm incision was made with a 10 blade and a 10 mm port was placed in the abdominal cavity, and intra-abdominal visualization revealed no evidence of a Veress needle or trocar injury. An epigastric 5 mm port was placed under direct vision and 2 lateral 5 mm ports. The gallbladder was identified. It was mildly inflamed. It was placed on traction. The hepatoduodenal ligament was identified and it was dissected. The cystic duct and cystic artery were both dissected out of the hepatoduodenal ligament. Two Endoclips were placed on the stay side and 1 on the specimen side of both the cystic duct and cystic artery. These structures were divided. The gallbladder was dissected out of the liver bed with Bovie cautery, placed in an Endobag, and removed through the umbilical port site. The right upper quadrant was irrigated with normal saline, suctioned dry, and hemostasis of the liver bed was obtained with Bovie cautery. Upon reduction of the pneumoperitoneum the ports were removed. The umbilical fascial defect was closed with 0 Vicryl in the fascia, and then all 4 skin incisions were closed with intracuticular 4-0 Biosyn. They were anesthetized with 0.5% Marcaine solution and then Steri-Strips were applied, which completed the procedure. Estimated blood loss was less than 25 mL. Sponge and needle counts were correct x2. The patient was awakened in the operating room, extubated, and transferred to recovery in stable condition, no complications. DICTATING PHYSICIAN: JOSHUA PETTIT M.D. [id number] PHY#: [id number] ID: [id number] JOB#: [id number] ACCT: [id number] cc:JOSHUA PETTIT M.D. >
[2018-05-16] MEDS ORDERED: CEFAZOLIN 2 GM/D5W RTU 2 GM/50 ML RTUPB IV SCH (12:00)
[2018-05-16] MEDS ORDERED: CEFAZOLIN SODIUM 2 GM in DEXTROSE 5%-WATER 100 ML IV SCH (12:00)
[2018-05-16] MEDS ORDERED: TRAMADOL HCL 50 MG TABLET PO ONE (12:30)
[2018-05-16 13:17] VITALS: BP 114/71
== END 2018-05-16 13:28 | disposition home or self-care (01) ==
LOC: ER 03:16 → ASU 07:34 → UNDOADMOB 07:48 → EH 07:48 → INOR 07:49 → UNDODISOB 13:28 → ASU 13:28 → EDSTATUS 14:04
PROVIDERS: ATTEND Surgery
DX: K80.10 Calculus of gallbladder with chronic cholecystitis without obstruction (principal); I89.8 Other specified noninfective disorders of lymphatic vessels and lymph nodes; K76.0 Fatty (change of) liver, not elsewhere classified
CPT/HCPCS: 36415; 83690; 84703; 85025; 80053; 81001; 88304 ×2; 76705; 47562; J2250; J3490 ×6; J0690; J1100; J1885 ×2; J3010; J2765; J2270; J2370; J0330; J2405; J7030; J2704; J0131; 790

== ENCOUNTER 2018-05-17 12:48 | Emergency (ER) | payer MEDICAID ==
[2018-05-17 12:56] VITALS: BP 140/86
[2018-05-17] MEDS ORDERED: ALBUTEROL SULFATE HFA (90 MCG/PUFF) 8 GM MDI (1 MDI/ER DISP) IH ONE (13:38)
[2018-05-17] MEDS ORDERED: LIDOCAINE 5% (700 MG) TRANSDERMAL ADH..PATCH TP ONE (13:39)
--- NOTE | 2018-05-17 13:40 | ER Document Report ---
ED General - General Chief Complaint: Abdominal Pain Stated Complaint: ABDOMINAL PAIN Time Seen by Provider: 05/17/18 13:23 Primary Care Provider: GLADYS STRICKLAND MD [Primary Care Provider] - Follow up as needed TRAVEL OUTSIDE OF THE [place] IN LAST 30 DAYS: No - HPI Patient complains to provider of: Abdominal pain Notes: Patient coming in for evaluation of right upper quadrant abdominal pain. Patient was approximate 24 hours postop from having a left scopic cholecystectomy. Patient states she was coughing at home now has spasm in the right upper quadrant with 1 of her laboratory sites bleeding. Patient denies any fever chills patient is resting comfortably my evaluation. A brief review of the patient's past medical records available in [facility] was performed - Related Data Allergies/Adverse Reactions: No Known Allergies Allergy (Verified 05/17/18 12:50) Past Medical History - Social History Smoking Status: Current Every Day Smoker Chew tobacco use (# tins/day): No Frequency of alcohol use: None Drug Abuse: None Family History: Reviewed & Not Pertinent Patient has suicidal ideation: No Patient has homicidal ideation: No Renal/ Medical History: Denies: Hx Peritoneal Dialysis Past Surgical History: Reports: Hx Section - x 3, Hx Cholecystectomy - Immunizations Hx Diphtheria, Pertussis, Tetanus Vaccination: Yes Review of Systems - Review of Systems Constitutional: No symptoms reported EENT: No symptoms reported Cardiovascular: No symptoms reported Respiratory: No symptoms reported Gastrointestinal: Abdominal pain Genitourinary: No symptoms reported Female Genitourinary: No symptoms reported Musculoskeletal: No symptoms reported Skin: No symptoms reported Hematologic/Lymphatic: No symptoms reported Neurological/Psychological: No symptoms reported -: Yes All other systems reviewed and negative Physical Exam - Vital signs Vitals: Temp Pulse Resp BP Pulse Ox 98.7 F 61 16 140/86 H 98 05/17/18 12:54 05/17/18 12:54 05/17/18 12:54 05/17/18 12:54 05/17/18 12:54 Interpretation: Normal - General General appearance: Appears well, Alert - HEENT Head: Normocephalic, Atraumatic Eyes: Normal Pupils: PERRL - Respiratory Respiratory status: No respiratory distress Chest status: Nontender Breath sounds: Wheezing Chest palpation: Normal - Cardiovascular Rhythm: Regular Heart sounds: Normal auscultation Murmur: No - Abdominal Inspection: Normal Distension: No distension Bowel sounds: Normal Tenderness: Tender - Appropriate tenderness for postsurgical procedure. There is no guarding or rebound. Multiple laparoscopic sites that are covered well- healed with some slight blushing on the Steri-Strips of the right upper quadrant however no active bleeding at this time. Organomegaly: No organomegaly - Back Back: Normal, Nontender - Extremities General upper extremity: Normal inspection, Nontender, Normal color, Normal ROM, Normal temperature General lower extremity: Normal inspection, Nontender, Normal color, Normal ROM, Normal temperature, Normal weight bearing. No: Maricruz's sign - Neurological Neuro grossly intact: Yes Cognition: Normal Orientation: AAOx4 Tan Coma Scale Eye Opening: Spontaneous [place] Coma Scale Verbal: Oriented [place] Coma Scale Motor: Obeys Commands [place] Coma Scale Total: 15 Speech: Normal Motor strength normal: LUE, RUE, LLE, RLE Sensory: Normal - Psychological Associated symptoms: Normal affect, Normal mood - Skin Skin Temperature: Warm Skin Moisture: Dry Skin Color: Normal Course - Re-evaluation Re-evalutation: 05/17/18 14:25 Patient was severely wheezing on examination states that she does continue to smoke even postoperatively. We recommend the patient use honey at home will give patient an inhaler to help out with the wheezing heard on examination otherwise abdominal examination is benign. The patient presents with abdominal pain without signs of peritonitis or other life-threatening or serious etiology. The patient appears stable for discharge and has been instructed to return immediately if the symptoms worsen in any way, or in 8-12hr if not improved for re-evaluation. The patient has been instructed to return if the symptoms worsen or change in any way. - Vital Signs Vital signs: Temp Pulse Resp BP Pulse Ox 98.7 F 61 16 140/86 H 98 05/17/18 12:54 05/17/18 12:54 05/17/18 12:54 05/17/18 12:54 05/17/18 12:54 Discharge - Discharge Clinical Impression: Postoperative abdominal pain, Cough Condition: Good Disposition: HOME, SELF-CARE Additional Instructions: Evaluation of your abdomen is consistent with postoperative abdominal pain. Would recommend continue take your prescribed pain medication he can try lidocaine patches [id number]. Please stop smoking we will give you an inhaler here today to help out with some slight wheezing that I did hear on examination today the inhaler will also help out with cough suppression would also recommend [id number] cough drops and use of natural honey to help and cough suppression return to ER symptoms worsen follow-up with your surgeon as scheduled Referrals: GLADYS STRICKLAND MD [Primary Care Provider] - Follow up as needed
== END 2018-05-17 13:50 | disposition home or self-care (01) ==
LOC: ER 12:48
DX: G89.18 Other acute postprocedural pain (principal); R10.11 Right upper quadrant pain; R05 Cough; R25.2 Cramp and spasm; F17.200 Nicotine dependence, unspecified, uncomplicated; Z90.49 Acquired absence of other specified parts of digestive tract
CPT/HCPCS: 99283; J3490 ×2